=== PATIENT | female | born 1965 | race Caucasian/White ===

== ENCOUNTER → 2018-06-22 17:47 | Outpatient (CLI) | payer OTHER, MEDICAID, SELFPAY ==
[2018-06-22 19:43] LABS: Appearance Urine UA SL CLOUDY; Bilirubin Urine UA NEGATIVE (NEGATIVE); Color Urine UA ORANGE; Glucose Urine UA TRACE g/dL (Negative); Ketones Urine UA NEGATIVE (NEGATIVE); Leukocyte Esterase Urine UA 2+ (NEGATIVE); Nitrite Urine UA POSITIVE (Negative); Occult Blood Urine UA 2+ (Negative); Protein Urine UA TRACE (Negative)
[2018-06-22 20:21] LABS: Amorphous Sediment Urine 1+; Bacteria Urine Few (2-10); RBC Urine 1-5/HPF (0-5/HPF); Squamous Epithelial Cell Urine 0-1 /HPF; WBC Urine 30-100/HPF (0-5/HPF)
[2018-06-22 20:22] LABS: Culture Indicated Urine Specimen Cultured; Mucus Urine 1+ (Negative)
== END ==
PROVIDERS: PCP Family Medicine; Visit Provider Family Medicine
DX: R39.89 Other symptoms and signs involving the genitourinary system (principal)
CPT/HCPCS: 81001; 87077; 87086; 87186

== ENCOUNTER → 2018-07-30 08:59 | Outpatient (CLI) | payer OTHER, MEDICAID, SELFPAY ==
[2018-07-30 09:47] LABS: Add Manual Diff / Slide Review NO; Basophils Absolute Auto 0 /uL (0-100); Eosinophils Absolute Auto 200 /uL (0-450); Eosinophils Percent Auto 3.8 % (2-4); Hematocrit 39.9 % (36-46); Hemoglobin 13.6 g/dL (12.0-16.0); Lymphocytes Absolute Auto 1800 /uL (1100-4500); Lymphocytes Percent Auto 38.1 % (25-40); Mean Corpuscular Hemoglobin 29.5 PG (26-34); Mean Corpuscular Volume 86.7 fL (80-100); Monocytes Absolute Auto 300 /uL (0-900); Monocytes Percent Auto 6.7 % (3-14); Neutrophils Absolute Auto 2300 /uL (1500-7000); Neutrophils Percent Auto 50.4 % (50-75); Platelet Count 408 X10^3/uL (150-400); Red Blood Cell Count 4.61 X10^6/uL (4.0-5.2); Red Cell Distribution Width 12.9 % (11.6-14.8); White Blood Cell Count 4.6 X10^3/uL (4.5-11.0)
[2018-07-30 10:04] LABS: Alanine Aminotransferase 31 IU/L (9-52); Albumin 4.6 g/dL (3.5-5.0); Albumin Globulin Ratio 1.5 (1.0-2.8); Alkaline Phosphatase 68 U/L (38-126); Aspartate Aminotransferase 27 IU/L (14-36); BUN Creatinine Ratio 21.4 (6-22); Bilirubin Total 0.5 mg/dL (0.2-1.3); Blood Urea Nitrogen 15 mg/dL (7-17); Calcium 9.3 mg/dL (8.4-10.2); Carbon Dioxide 28 mmol/L (22-32); Chloride 105 mmol/L (98-107); Cholesterol 234 mg/dL (140-199); Estimated Glomerular Filt Rate > 60.0 mL/min (>60); Globulin 3.1 g/dL (1.7-4.1); Glucose 108 mg/dL (70-100); HDL Cholesterol 65 mg/dL (40-60); HEMOLYSIS < 15 (0-50); LDL Cholesterol Calculated 153 mg/dL (<100); Sodium 142 mmol/L (137-145); Total Protein 7.7 g/dL (6.3-8.2); Triglycerides 79 mg/dL (35-150)
[2018-07-30 11:17] LABS: Free T4, Direct Thyroxine 1.04 ng/dL (0.78-2.19)
== END ==
PROVIDERS: PCP Family Medicine; Visit Provider Family Medicine
DX: R53.83 Other fatigue (principal); Z13.220 Encounter for screening for lipoid disorders; Z13.29 Encounter for screening for other suspected endocrine disorder
CPT/HCPCS: 36415; 80053; 80061; 84439; 84443; 85025

== ENCOUNTER → 2018-08-01 11:26 | Outpatient (CLI) | payer OTHER, MEDICAID, SELFPAY ==
[2018-08-01 12:45] LABS: Free T3, Triiodothyronine Free 4.17 pg/mL (2.77-5.27)
[2018-08-03 16:05] LABS: Thyroid Peroxidase Antibodies 2 IU/mL (< 9)
[2018-08-04 16:16] LABS: HSV 2 IGG AB 2.23 index (< 0.90)
== END ==
PROVIDERS: PCP Family Medicine; Visit Provider Family Medicine
DX: E04.9 Nontoxic goiter, unspecified (principal); Z78.0 Asymptomatic menopausal state; Z20.828 Contact with and (suspected) exposure to other viral communicable diseases
CPT/HCPCS: 36415; 83001; 84481; 86376; 86695; 86696

== ENCOUNTER → 2018-09-28 10:44 | Outpatient (CLI) | payer OTHER, MEDICAID, SELFPAY ==
--- NOTE | 2018-09-28 10:45 | DI.MG.S_ITS ---
BILATERAL DIGITAL SCREENING MAMMOGRAM 3D/2D WITH CAD: 09/28/2018 CLINICAL: Routine screening. Baseline exam. No prior exams were available for comparison. There are scattered fibroglandular elements in both breasts. Current study was also evaluated with a Computer Aided Detection (CAD) system. No significant masses, calcifications, or other findings are seen in either breast. IMPRESSION: NEGATIVE There is no mammographic evidence of malignancy. A 1 year screening mammogram is recommended. This exam was interpreted at Station ID: [id number]. NOTE: For mammograms, a report in lay terms will be sent to the patient. Approximately 15% of breast malignancies will not be visualized mammographically. In the management of a palpable breast mass, a negative mammogram must not discourage biopsy of a clinically suspicious lesion. Electronically Signed By: Yasmin mckeon/jocelyn:09/28/2018 16:21:08 letter sent: Normal Exam ACR BI-RADS Category 1: Negative [id number]
== END ==
PROVIDERS: PCP Family Medicine; Visit Provider Family Medicine
DX: Z12.31 Encounter for screening mammogram for malignant neoplasm of breast (principal)
CPT/HCPCS: 77063; 77067

== ENCOUNTER 2018-12-16 06:09 | Day surgery (SDC) | payer OTHER, MEDICAID, SELFPAY ==
--- NOTE | 2018-12-16 | PATH_ITS ---
[facility] Accession Number: [id number] . 01 Material submitted: . colon - POLYP 2-3 MM AT ASCENDING COLON/HEPATIC FLEXURE . 01 Clinical history: . ENCOUNTER FOR SCREENING FOR MALIGNANT NEOPLASM . 02 Diagnosis: Ascending Colon/Hepatic Flexure, Polyp 2-3mm, Biopsy: Tubular adenoma. MRV 12/19/2018 1009 Local . 02 Electronically signed: . Mary Carlin MD, Pathologist NPI- [id number] . 01 Gross description: . POLYP 2-3 MM AT ASCENDING COLON/HEPATIC FLEXURE: Received in formalin are 2 fragment(s) of brooks, soft tissue measuring 0.1 x 0.1 x 0.1 cm to 0.2 x 0.2 x 0.2 cm which is entirely submitted and submitted entirely in 1 cassette(s) /[facility] 12/16/20181999 Local . 02 Pathologist provided ICD-10: D12.2 . 02 CPT . 191290 Performed at: 01 [facility] [address] [facility], [place], [place] [id number] MD Jaylen Aguilar MD Phone: [phone] Performed at: 02 [facility] [address] [place], [place] [id number] MD Mary Carlin MD Phone: [phone]
[2018-12-16 06:39] VITALS: BP 131/76; PULSE 61; RESP 16; TEMP 36.6; O2SAT 97; BMI 29.7
[2018-12-16] MEDS: SODIUM CHLORIDE 0.9% 1,000 ML 200 ML IV (07:15)
--- NOTE | 2018-12-16 07:29 | PM.HP.1 ---
History of Present Illness History of Present Illness Date Patient Seen: 12/16/18 Time Patient Seen: 07:29 Chief complaint: [id number] Narrative: 53-year-old white female patient here for her 1st screening colonoscopy. She has had no prior abdominal surgery she has no melena no hematochezia and no abdominal pain. Patient History Social History household members: spouse Smoking Status: Former smoker Family & Social History Social History: household members spouse Tobacco & Substance use: Smoking Status Former smoker Meds Home Medications and Allergies Home Medications Medication Instructions Recorded Confirmed Type melatonin 5 mg PO BEDTIME PRN 12/16/18 12/16/18 History Allergies Allergy/AdvReac Type Severity Reaction Status Date / Time No Known Drug Allergies Allergy Verified 03/30/18 09:22 Review of Systems Review of Systems ROS Unobtainable: All systems reviewed & are unremarkable except as noted in HPI and below Exam Vital Signs (past 8 hours): - 12/16/18 06:39 Temperature 97.9 F Pulse Rate 61 Respiratory Rate 16 Blood Pressure 131/76 Pulse Oximetry 97 Oxygen Delivery Method Room Air Narrative Exam Narrative: Patient is alert and oriented she denies any abdominal pain Lungs are clear with no rales or wheezes Heart regular rhythm no murmur Abdomen soft nontender no organomegaly or masses Rectal to be done at time of colonoscopy Assessment & Plan Assessment & Plan narrative: Patient is asymptomatic here for her 1st screening colonoscopy. Procedure was explained she has no unanswered questions
[2018-12-16] MEDS: MIDAZOLAM 5 MG/5 ML VIAL IV (08:19)
[2018-12-16] MEDS: fentaNYL 250 MCG/5 ML INJ IV (08:19)
--- NOTE | 2018-12-16 08:23 | PM.OP.ENDO ---
Operative Date/Time/Diagnoses Date of procedure: 12/16/18 Time of procedure: 08:24 Post-op diagnosis: other (Hyperplastic polyp in the ascending colon removed 2-3 mm in diameter) Procedure & Clinicians Study performed: Colonoscopy to the cecum with polypectomy in the ascending colon Same procedure as scheduled: Yes Surgeon: Tom White Procedure Notes SCOAP/Timeout: This was done Procedure in detail: The patient was properly identified during surgical pause she was given a total of 5 mg of Versed and 250 micro g of fentanyl and remained comfortable throughout the procedure. The flexible fiberoptic colonoscope was inserted transanally to the cecum. The only abnormality was a 2-3 mm hyperplastic polyp in the ascending colon which was removed and submitted she tolerated the procedure very well no well-defined adenomas were encountered Scope withdrawal time: 15 Sedation minutes: 33 Findings: polyp Specimen(s): other (2-3 mm polyp in the ascending colon likely hyperplastic in nature) Complications: none Post-procedure Recommendations: Colonscopy in 5 years Disposition: PACU
[2018-12-16 08:24] VITALS: BP 136/54; PULSE 66; RESP 12; TEMP 36.7; O2SAT 96
[2018-12-16 08:28] VITALS: BP 119/66; PULSE 78; RESP 11; TEMP 36.2; O2SAT 98
[2018-12-16 08:39] VITALS: BP 137/82; PULSE 77; RESP 16; TEMP 36.7; O2SAT 99
== END 2018-12-16 08:55 | disposition home or self-care (01) ==
PROVIDERS: PCP Family Medicine; Visit Provider Surgery
PROC: 0DJD8ZZ Inspection of Lower Intestinal Tract, Via Natural or Artificial Opening Endoscopic (ICD-10-PCS; CPT 45378; principal; 2018-12-16 07:45)
DX: Z12.11 Encounter for screening for malignant neoplasm of colon (principal); Z87.891 Personal history of nicotine dependence; D12.2 Benign neoplasm of ascending colon
CPT/HCPCS: 45380; 99152; 99153; J2250; J3010

== ENCOUNTER → 2019-09-20 11:56 | Outpatient (CLI) | payer OTHER, MEDICAID, SELFPAY ==
[2019-09-20 13:09] LABS: Add Manual Diff / Slide Review NO; Basophils Absolute Auto 0 /uL (0-100); Eosinophils Absolute Auto 200 /uL (0-450); Eosinophils Percent Auto 3.4 % (2-4); Hematocrit 40.1 % (36-46); Hemoglobin 13.6 g/dL (12.0-16.0); Lymphocytes Absolute Auto 1900 /uL (1100-4500); Lymphocytes Percent Auto 35.5 % (25-40); Mean Corpuscular Volume 88.2 fL (80-100); Monocytes Absolute Auto 400 /uL (0-900); Monocytes Percent Auto 8.3 % (3-14); Neutrophils Absolute Auto 2700 /uL (1500-7000); Neutrophils Percent Auto 51.8 % (50-75); Platelet Count 391 X10^3/uL (150-400); Red Blood Cell Count 4.55 X10^6/uL (4.0-5.2); Red Cell Distribution Width 13.4 % (11.6-14.8); White Blood Cell Count 5.2 X10^3/uL (4.5-11.0)
[2019-09-20 13:44] LABS: Alanine Aminotransferase 32 IU/L (<35); Albumin 4.7 g/dL (3.5-5.0); Albumin Globulin Ratio 1.6 (1.0-2.8); Alkaline Phosphatase 75 U/L (38-126); Aspartate Aminotransferase 35 IU/L (14-36); BUN Creatinine Ratio 16.9 (6-22); Bilirubin Total 0.6 mg/dL (0.2-1.3); Blood Urea Nitrogen 12 mg/dL (7-17); Calcium 9.3 mg/dL (8.4-10.2); Carbon Dioxide 27 mmol/L (22-32); Chloride 103 mmol/L (98-107); Cholesterol 246 mg/dL (140-199); Estimated Glomerular Filt Rate > 60.0 mL/min (>60); Globulin 2.9 g/dL (1.7-4.1); Glucose 98 mg/dL (70-100); HDL Cholesterol 70 mg/dL (40-60); HEMOLYSIS < 15 (0-50); LDL Cholesterol Calculated 156 mg/dL (<100); Potassium 4.1 mmol/L (3.4-5.1); Sodium 140 mmol/L (137-145); Total Protein 7.6 g/dL (6.3-8.2); Triglycerides 100 mg/dL (35-150)
[2019-09-20 14:01] LABS: Free T3, Triiodothyronine Free 4.31 pg/mL (2.77-5.27); Free T4, Direct Thyroxine 1.08 ng/dL (0.78-2.19)
[2019-09-20 14:14] LABS: Thyroid Stimulating Hormone 1.02 uIU/mL (0.47-4.68)
[2019-09-21 07:09] LABS: Thyroid Peroxidase Antibodies <9 IU/mL (0-34)
[2019-09-26 04:07] LABS: Triiodothyronine T3 Reverse 13.6 ng/dL (9.2-24.1)
== END ==
PROVIDERS: PCP Family Medicine; Referring Provider Family Medicine; Visit Provider Family Medicine
DX: D47.3 Essential (hemorrhagic) thrombocythemia (principal); E04.9 Nontoxic goiter, unspecified
CPT/HCPCS: 36415; 80053; 80061; 84439; 84443; 84481; 84482; 85025; 86376

== ENCOUNTER → 2020-09-19 10:24 | Outpatient (CLI) | payer OTHER, MEDICAID, SELFPAY ==
[2020-09-19 10:38] LABS: Hematocrit 42.5 % (36-46); Hemoglobin 14.2 g/dL (12.0-16.0); Mean Corpuscular HGB Conc 33.4 % (30-36); Mean Corpuscular Hemoglobin 29.3 PG (26-34); Mean Corpuscular Volume 87.7 fL (80-100); Platelet Count 410 X10^3/uL (150-400); Red Blood Cell Count 4.85 X10^6/uL (4.0-5.2); Red Cell Distribution Width 13.2 % (11.6-14.8); White Blood Cell Count 6.7 X10^3/uL (4.5-11.0)
[2020-09-19 10:51] LABS: Alanine Aminotransferase 38 IU/L (<35); Albumin 4.6 g/dL (3.5-5.0); Albumin Globulin Ratio 1.4 (1.0-2.8); Alkaline Phosphatase 63 U/L (38-126); Aspartate Aminotransferase 36 IU/L (14-36); BUN Creatinine Ratio 19.4 (6-22); Bilirubin Total 0.6 mg/dL (0.2-1.3); Blood Urea Nitrogen 14 mg/dL (7-17); Calcium 9.9 mg/dL (8.4-10.2); Carbon Dioxide 31 mmol/L (22-32); Chloride 101 mmol/L (98-107); Estimated Glomerular Filt Rate > 60.0 mL/min (>60); Globulin 3.2 g/dL (1.7-4.1); Glucose 97 mg/dL (70-100); HEMOLYSIS < 15 (0-50); Magnesium 1.8 mg/dL (1.6-2.3); Potassium 3.9 mmol/L (3.4-5.1); Sodium 139 mmol/L (137-145); Total Protein 7.8 g/dL (6.3-8.2)
== END ==
PROVIDERS: PCP Family Medicine; Referring Provider Nurse Practitioner Family; Visit Provider Nurse Practitioner Family
DX: R07.89 Other chest pain (principal)
CPT/HCPCS: 36415; 80053; 83735; 84443; 85027

== ENCOUNTER → 2020-10-01 08:40 | Outpatient (CLI) | payer OTHER, MEDICAID, SELFPAY ==
--- NOTE | 2020-10-01 | DI.US.S_ITS ---
ULTRASOUND OF RIGHT AXILLA: 10/01/2020 CLINICAL: Right axillary thickening/puffiness. Comparison is made to exams dated: 10/01/2020 mammogram and 09/28/2018 mammogram - [facility]. Color flow and real-time ultrasound of the right axilla were performed. Adhikari scale images of the real-time examination were reviewed. No significant abnormalities were seen sonographically in the right axilla. IMPRESSION: NEGATIVE There is no sonographic evidence of malignancy. Return to annual mammogram screening schedule is recommended. This exam was interpreted at Station ID: [id number]. Electronically Signed By: Brendan Garcia M.D., jr/jocelyn:10/01/2020 09:45:25 letter sent: Normal Exam Ultrasound BI-RADS: 1 Negative
--- NOTE | 2020-10-01 08:42 | DI.MG.S_ITS ---
BILATERAL DIGITAL DIAGNOSTIC MAMMOGRAM 3D/2D: 10/01/2020 CLINICAL: Right axillary swelling. Family history of breast cancer. Comparison is made to exam dated: 09/28/2018 [facility]. There are scattered fibroglandular elements in both breasts. No significant masses, calcifications, or other findings are seen in either breast. IMPRESSION: INCOMPLETE: NEEDS ADDITIONAL IMAGING EVALUATION No suspicious mammographic finding. Ultrasound of the right axilla area of intermittent swelling and tenderness will be performed. This exam was interpreted at Station ID: [id number]. NOTE: For mammograms, a report in lay terms will be sent to the patient. Approximately 15% of breast malignancies will not be visualized mammographically. In the management of a palpable breast mass, a negative mammogram must not discourage biopsy of a clinically suspicious lesion. Electronically Signed By: Brendan Garcia M.D. jr/:10/01/2020 09:17:28 Entry: alex - 10/02/2020 08:45:30 ACR BI-RADS Category 0: Incomplete [id number]
== END ==
PROVIDERS: PCP Family Medicine; Referring Provider Nurse Practitioner Family; Visit Provider Nurse Practitioner Family
DX: R92.2 Inconclusive mammogram (principal); N63.31 Unspecified lump in axillary tail of the right breast; Z80.3 Family history of malignant neoplasm of breast
CPT/HCPCS: 76882; 77066; G0279

== ENCOUNTER → 2020-11-27 09:47 | Outpatient (CLI) | payer OTHER, MEDICAID, SELFPAY | PROVIDERS: PCP Family Medicine; Visit Provider Physician Assistant | DX: N39.0 Urinary tract infection, site not specified (principal) | CPT/HCPCS: 81002; 87077; 87086; 87186 ==